=== PATIENT | female | born 1970 | race Caucasian/White ===

== ENCOUNTER 2021-02-22 13:34 | Inpatient (IN) | payer SELFPAY ==
[~2021-02-22 13:34] MED LIST: Iopamidol-370 76% 500 ML 1 ML ONE
[2021-02-22 14:30] LABS: Hemoglobin 15.6 g/dL (12.0-16.0); Mean Corpuscular HGB CONC 31.1 g/dL (32.0-36.0); Mean Corpuscular Hemoglobin 33.2 pg (27.0-31.0); Mean Platelet Volume 7.5 fL (7.4-10.4); Platelet Count 569 thou/uL (130-400); RBC Distribution Width 11.5 % (11.5-14.5); Red Blood Cell (RBC) Count 4.69 mill/uL (4.20-5.40); White Blood Cell (WBC) Count 40.7 thou/uL (4.8-10.8)
[2021-02-22] MEDS: Sodium Chloride 0.9% 1,000 ML IV SCH ×2 (14:30→15:31)
[2021-02-22 14:46] LABS: ALT (SGPT) 9 U/L (8-55); AST (SGOT) 8 U/L (5-34); Albumin 3.9 g/dL (3.5-5.0); Alkaline Phosphatase 89 U/L (40-110); BUN (Urea Nitrogen) 26 mg/dL (9.8-20.1); Bilirubin, Total 0.2 mg/dL (0.2-1.2); Calc. Creatinine Clearance 0 mL/min (70-130); Calcium 8.7 mg/dL (7.8-10.44); Chloride 104 mmol/L (98-107); Globulin 2.7 g/dL (2.4-3.5); Potassium 6.3 mmol/L (3.5-5.1); Protein, Total 6.6 g/dL (6.0-8.3); Sodium 129 mmol/L (136-145)
[2021-02-22 14:50] LABS: Carbon Dioxide Less than 8 mmol/L (22-29); Glucose 600 mg/dL (70-105)
[2021-02-22] MEDS ORDERED: Cefepime 2 GM VIAL ONE (15:02)
[2021-02-22 15:05] LABS: Band 20 % (5-11); Hypochromia SLIGHT = 6-15 cells (100X) (0-5/hpf); Lymphocytes 11 % (21-51); MDiff Complete? YES; Macrocytosis SLIGHT = 6-15 cells (100X) (0-5/hpf); Monocytes 4 % (0-10); Neutrophil 64 % (42-75); Platelet Morphology Comment Appears Increased; Reactive Lymphocytes 1 % (0-10); Reflex for Review?? YES
[2021-02-22 15:15] LABS: Analyzer IN Cardio ER; Base Excess -29.7 mEq/L (-2.0 to +3.0); Calcium, Ionized (venous) 1.03 mmol/L (1.16-1.32); Chloride (VBG) 105 mmol/L (98-106); Hemoglobin (Hb) 16.8 g/dL (11.7-16.0); Potassium (VBG) 5.61 mmol/L (3.70-5.30); Sodium 133.8 mmol/L (133-146)
[2021-02-22 15:19] LABS: Actual Bicarbonate (HCO3v) 3 mEq/L (22-28); pH (venous) 6.87 (7.32-7.43)
[2021-02-22] MEDS ORDERED: Sodium Chloride 0.9% 1,000 ML IV SCH (15:30)
[2021-02-22] MEDS ORDERED: Aspirin 325 MG TAB PO SCH (15:30)
[2021-02-22] MEDS ORDERED: INSULIN REGULAR IN 0.9 % NACL 100 UNIT/100 ML BAG ONE (15:31)
[2021-02-22 15:33] LABS: BUN (Urea Nitrogen) 25 mg/dL (9.8-20.1); Calc. Creatinine Clearance 0 mL/min (70-130); Calcium 8.2 mg/dL (7.8-10.44); Chloride 104 mmol/L (98-107); Phosphorus 4.3 mg/dL (2.3-4.7); Sodium 129 mmol/L (136-145)
[2021-02-22 15:41] LABS: Carbon Dioxide Less than 8 mmol/L (22-29); Glucose 555 mg/dL (70-105)
[2021-02-22] MEDS ORDERED: Vancomycin 1 GM/200 ML BAG ONE (15:47)
[2021-02-22 15:50] LABS: Lipase 22 U/L (8-78)
[2021-02-22] MEDS ORDERED: Sodium Bicarb 50 MEQ/50 ML Abboject 8.4% SYRINGE IVP SCH (15:52)
[2021-02-22] MEDS ORDERED: Sodium Bicarb 50 MEQ/50 ML Abboject 8.4% SYRINGE ONE (16:04)
[2021-02-22] MEDS ORDERED: Dextrose 5% in Water 1,000 ML IV PRN (16:30)
[2021-02-22] MEDS ORDERED: HUMULIN R 100 UNITS in Sodium Chloride 0.9% 100 ML IVPB SCH ×2 (16:30→17:30)
[2021-02-22] MEDS ORDERED: Dextrose 50% Abboject 50 ML SYRINGE SLOW IVP PRN (16:30)
[2021-02-22] MEDS ORDERED: Sodium Bicarbonate 150 MEQ in Dextrose 5% in Water 1,000 ML IV SCH ×2 (16:45→22:45)
[2021-02-22] MEDS ORDERED: Lactated Ringer's 1,000 ML IV SCH (16:45)
[2021-02-22 17:12] LABS: BUN (Urea Nitrogen) 24 mg/dL (9.8-20.1); Calc. Creatinine Clearance 0 mL/min (70-130); Calcium 8.5 mg/dL (7.8-10.44); Chloride 108 mmol/L (98-107); Glucose 482 mg/dL (70-105); Potassium 5.9 mmol/L (3.5-5.1); Sodium 131 mmol/L (136-145)
[2021-02-22 17:12] LABS: Bacteria/HPF None Seen HPF (None Seen); Bilirubin Negative (Negative); Blood, Urine Trace (Negative); Clarity Clear (Clear); Glucose, Urine (Dipstick) Greater than 1000 mg/dL (Negative); Ketone, Urine Greater than 150 mg/dL (Negative); Leukocyte Negative Leu/uL (Negative); Nitrite Negative (Negative); Protein, Urine (Dipstick) 30 mg/dL (Neg-Trace); RBC/HPF 0-3 HPF (0-3); Squamous Epithelial 0-3 HPF (0-3); Urobilinogen Normal mg/dL (Less than 2); WBC/HPF 0-3 HPF (0-3)
[2021-02-22 17:16] LABS: Carbon Dioxide Less than 8 mmol/L (22-29)
[2021-02-22] MEDS ORDERED: Electrolyte Replacement Protocol 1 EACH IVPB ONE (17:16)
[2021-02-22] MEDS ORDERED: Dextrose 5 %-0.45 % NaCl 1,000 ML IV PRN (17:16)
[2021-02-22] MEDS ORDERED: Sodium Chloride 0.9% 1,000 ML IV PRN ×4 (17:16)
[2021-02-22] MEDS ORDERED: NS 0.9% w/ 20 MEQ KCL 1,000 ML IV PRN ×2 (17:16)
[2021-02-22] MEDS ORDERED: Acetaminophen 325 MG TAB PO PRN (17:32)
[2021-02-22 17:38] LABS: BUN (Urea Nitrogen) 21 mg/dL (9.8-20.1); Calc. Creatinine Clearance 0 mL/min (70-130); Calcium 7.5 mg/dL (7.8-10.44); Chloride 113 mmol/L (98-107); Glucose 398 mg/dL (70-105); Sodium 136 mmol/L (136-145)
[2021-02-22 17:44] LABS: Troponin I 0.016 ng/mL (< 0.028)
[2021-02-22 17:50] LABS: SARS-CoV-2 NAA Rapid Test Not Detected (NotDetected)
[2021-02-22 17:50] LABS: Carbon Dioxide Less than 8 mmol/L (22-29)
[2021-02-22] MEDS ORDERED: Electrolyte Replacement Protocol FS PRN (18:00)
[2021-02-22] MEDS ORDERED: Magnesium 2 GM/50 ML 2 GM in Premix Bag 1 BAG IVPB SCH (20:00)
[2021-02-22] MEDS: Famotidine/PF 20 mg/2ml Vial SLOW IVP SCH (20:49)
[2021-02-22 21:26] LABS: Anion Gap 19 mmol/L (10-20); BUN (Urea Nitrogen) 14 mg/dL (9.8-20.1); Calc. Creatinine Clearance 100 mL/min (70-130); Calcium 7.6 mg/dL (7.8-10.44); Chloride 113 mmol/L (98-107); Glucose 220 mg/dL (70-105); Potassium 4.2 mmol/L (3.5-5.1); Sodium 136 mmol/L (136-145)
[2021-02-22 21:35] LABS: Carbon Dioxide 8 mmol/L (22-29)
[2021-02-23] MEDS: D5 1/2 NS w/20 mEq KCL 1,000 ML IV PRN ×2 (00:03→04:50)
[2021-02-23 01:43] LABS: Anion Gap 13 mmol/L (10-20); BUN (Urea Nitrogen) 13 mg/dL (9.8-20.1); Calc. Creatinine Clearance 105 mL/min (70-130); Calcium 7.6 mg/dL (7.8-10.44); Carbon Dioxide 15 mmol/L (22-29); Chloride 112 mmol/L (98-107); Glucose 208 mg/dL (70-105); Potassium 3.2 mmol/L (3.5-5.1); Sodium 137 mmol/L (136-145)
[2021-02-23] MEDS ORDERED: Potassium Chloride 40 MEQ in Sodium Chloride 0.9% 250 ML 250 ML IVPB SCH ×2 (02:30→11:15)
[2021-02-23] MEDS: CEFEPIME HCL IN DEXTROSE 5 % 1 GM/50 ML BAG IVPB SCH ×2 (03:30→14:29)
[2021-02-23] MEDS: Vancomycin 1 GM in Premix Bag 1 BAG IVPB SCH ×2 (04:05→15:48)
[2021-02-23 04:08] LABS: Hemoglobin A1c Greater than 14.0 % (4.0-6.0)
[2021-02-23 04:14] LABS: Band 1 % (5-11); Hemoglobin 12.4 g/dL (12.0-16.0); Hypochromia SLIGHT = 6-15 cells (100X) (0-5/hpf); Lymphocytes 38 % (21-51); MDiff Complete? YES; Macrocytosis SLIGHT = 6-15 cells (100X) (0-5/hpf); Mean Corpuscular HGB CONC 33.5 g/dL (32.0-36.0); Mean Corpuscular Hemoglobin 33.8 pg (27.0-31.0); Mean Platelet Volume 7.1 fL (7.4-10.4); Monocytes 9 % (0-10); Neutrophil 52 % (42-75); Platelet Count 325 thou/uL (130-400); Platelet Morphology Comment Appears Adequate; RBC Distribution Width 11.2 % (11.5-14.5); Red Blood Cell (RBC) Count 3.69 mill/uL (4.20-5.40); White Blood Cell (WBC) Count 13.8 thou/uL (4.8-10.8)
[2021-02-23 04:20] LABS: Anion Gap 11 mmol/L (10-20); BUN (Urea Nitrogen) 12 mg/dL (9.8-20.1); Calc. Creatinine Clearance 108 mL/min (70-130); Calcium 7.7 mg/dL (7.8-10.44); Carbon Dioxide 17 mmol/L (22-29); Chloride 111 mmol/L (98-107); Glucose 211 mg/dL (70-105); Potassium 3.3 mmol/L (3.5-5.1); Sodium 136 mmol/L (136-145)
[2021-02-23 04:34] VITALS: BMI 28.4
[2021-02-23] MEDS ORDERED: Dextrose 5% in Water 1,000 ML IV PRN (08:42)
[2021-02-23] MEDS ORDERED: Dextrose 50% Abboject 50 ML SYRINGE SLOW IVP PRN (08:42)
[2021-02-23] MEDS: Enoxaparin Sodium 40 MG/0.4 ML SYRINGE SC SCH (09:07)
[2021-02-23] MEDS: Famotidine/PF 20 mg/2ml Vial SLOW IVP SCH ×2 (09:07→21:26)
[2021-02-23] MEDS: Lantus 1000 UNITS/10 ML VIAL SC SCH ×2 (09:08→21:27)
[2021-02-23 10:39] LABS: Potassium 3.3 mmol/L (3.5-5.1)
[2021-02-23] MEDS: NS 0.9% w/ 40 MEQ KCL 1,000 ML IV SCH (13:24)
[2021-02-23] MEDS: HumaLOG 300 UNITS/3 ML VIAL SC PRN ×2 (16:10→21:29)
[2021-02-23 18:42] LABS: Potassium 3.8 mmol/L (3.5-5.1)
[2021-02-24] MEDS: NS 0.9% w/ 40 MEQ KCL 1,000 ML IV SCH (00:21)
[2021-02-24] MEDS: CEFEPIME HCL IN DEXTROSE 5 % 1 GM/50 ML BAG IVPB SCH (03:06)
[2021-02-24 04:06] LABS: Vancomycin, Trough 4.7 ug/mL
[2021-02-24 04:09] LABS: Anion Gap 11 mmol/L (10-20); BUN (Urea Nitrogen) 5 mg/dL (9.8-20.1); Calc. Creatinine Clearance 151 mL/min (70-130); Calcium 7.9 mg/dL (7.8-10.44); Carbon Dioxide 21 mmol/L (22-29); Chloride 109 mmol/L (98-107); Glucose 231 mg/dL (70-105); Potassium 3.6 mmol/L (3.5-5.1); Sodium 137 mmol/L (136-145)
[2021-02-24] MEDS: Vancomycin HCl 1.5 GM in Sodium Chloride 0.9% 250 ML 300 ML IVPB SCH ×2 (04:51→04:52)
[2021-02-24] MEDS: HumaLOG 300 UNITS/3 ML VIAL SC PRN ×4 (04:58→20:53)
[2021-02-24] MEDS: Vancomycin 1 GM in Premix Bag 1 BAG IVPB SCH (05:07)
[2021-02-24] MEDS: Enoxaparin Sodium 40 MG/0.4 ML SYRINGE SC SCH (09:06)
[2021-02-24] MEDS: Famotidine/PF 20 mg/2ml Vial SLOW IVP SCH ×2 (09:07→20:52)
[2021-02-24] MEDS: Lantus 1000 UNITS/10 ML VIAL SC SCH ×2 (09:07→20:54)
[2021-02-24] MEDS: Cefdinir 300 MG CAP PO SCH ×2 (12:35→20:52)
[2021-02-25] MEDS: HumaLOG 300 UNITS/3 ML VIAL SC PRN ×2 (05:56→12:29)
[2021-02-25 07:34] LABS: Anion Gap 11 mmol/L (10-20); BUN (Urea Nitrogen) 4 mg/dL (9.8-20.1); Calc. Creatinine Clearance 146 mL/min (70-130); Calcium 8.8 mg/dL (7.8-10.44); Carbon Dioxide 29 mmol/L (22-29); Chloride 101 mmol/L (98-107); Glucose 236 mg/dL (70-105); Potassium 3.3 mmol/L (3.5-5.1); Sodium 138 mmol/L (136-145)
[2021-02-25] MEDS: Lantus 1000 UNITS/10 ML VIAL SC SCH (08:09)
[2021-02-25] MEDS: Famotidine/PF 20 mg/2ml Vial SLOW IVP SCH (08:09)
[2021-02-25] MEDS: Enoxaparin Sodium 40 MG/0.4 ML SYRINGE SC SCH (08:09)
[2021-02-25] MEDS: Cefdinir 300 MG CAP PO SCH (08:09)
[2021-02-25] MEDS ORDERED: FLU VACC QS2021-22(6MOS UP)/PF 60 MCG/0.5 ML SYRINGE IM ONE (09:00)
[2021-02-25] MEDS ORDERED: Prevnar 13-Val Conj/PF 0.5 ML SYRINGE IM ONE (09:00)
[2021-02-25] MEDS ORDERED: Potassium Chloride 20 MEQ TAB PO SCH (12:00)
[2021-02-25 14:17] VITALS: BP 156/93; TEMP 97.6
[2021-02-25] MEDS ORDERED: Famotidine 20 MG TAB PO SCH (21:00)
== END 2021-02-25 14:24 | disposition home or self-care (01) | DRG 638 ==
LOC: ERS 13:34 → CCU 16:07 → T4-B 02-23 17:23
PROVIDERS: ADMIT Internal Medicine; ATTEND Internal Medicine
DX: E11.10 Type 2 diabetes mellitus with ketoacidosis without coma (principal); N17.9 Acute kidney failure, unspecified; N39.0 Urinary tract infection, site not specified; D64.9 Anemia, unspecified; M54.9 Dorsalgia, unspecified; G89.29 Other chronic pain; F17.210 Nicotine dependence, cigarettes, uncomplicated; E87.5 Hyperkalemia; B95.1 Streptococcus, group B, as the cause of diseases classified elsewhere; Z79.899 Other long term (current) drug therapy; Z86.73 Personal history of transient ischemic attack (TIA), and cerebral infarction without residual deficits; Z91.14 Patient's other noncompliance with medication regimen; E11.65 Type 2 diabetes mellitus with hyperglycemia
CPT/HCPCS: 0240U; 36415; 36416; 71045; 74177; 80048; 80053; 80202; 81003; 81015; 82010; 82805; 83036; 83605; 83690; 83735; 84100; 84484; 85007; 85025; 85027; 85060; 87040; 87077; 87086; 93005; 96365; 96366; 96375; J0692; J1650; J1815; J3370; J3475; J3480; J7050; J7070; Q9967; S0028

== ENCOUNTER 2022-01-26 08:11 | Outpatient (CLI) | payer BC ==
[2022-01-26 11:10] LABS: Anion Gap 17 mmol/L (10-20); BUN (Urea Nitrogen) 14 mg/dL (9.8-20.1); Calc. Creatinine Clearance 0 mL/min (70-130); Carbon Dioxide 25 mmol/L (22-29); Chloride 97 mmol/L (98-107); Estimated GFR 86; Potassium 5.1 mmol/L (3.5-5.1); Sodium 134 mmol/L (136-145)
[2022-01-26 11:25] LABS: Glucose 557 mg/dL (70-105)
== END 2022-01-26 08:12 | disposition home or self-care (01) ==
LOC: LABBT 08:11
PROVIDERS: ATTEND Neurological Surgery
DX: Z01.818 Encounter for other preprocedural examination (principal); M54.16 Radiculopathy, lumbar region; M21.372 Foot drop, left foot; Z20.822 Contact with and (suspected) exposure to COVID-19
CPT/HCPCS: 80048; 93005; 93010